=== PATIENT | female | born 1985 | race Caucasian/White ===

== ENCOUNTER 2017-08-07 10:52 | Emergency (ER) | payer SELFPAY ==
[2017-08-07 11:01] VITALS: O2SAT 98
[2017-08-07 11:02] VITALS: BMI 36.2
--- NOTE | 2017-08-07 12:14 | ED PDOC ---
HPI: Eye Injury/Pain Time Seen by Provider: 08/07/17 11:05 Chief Complaint (Nursing): ENT Problem Chief Complaint (Provider): Eye Pain and Swelling History Per: Patient History/Exam Limitations: no limitations Onset/Duration Of Symptoms: Days (x 2) Wears Contact Lens?: No Additional Complaint(s): 31 years old female presents to the ED complaining of left eye pain and left lower lid swelling onset 2 days. Patient reports worsening of pain associated with redness and tearing of the left eye. She states she has taken Ibuprofen with no improvement of symptoms. Patient denies experiencing any vision changes , fever, or upper respiratory infection symptoms. PMD: non provided Past Medical History Reviewed: Historical Data, Nursing Documentation, Vital Signs Vital Signs: Last Vital Signs Temp 97.9 F 08/07/17 11:01 Pulse 85 08/07/17 11:01 Resp 16 08/07/17 11:01 BP 114/74 08/07/17 11:01 Pulse Ox 98 08/07/17 11:01 - Medical History PMH: No Chronic Diseases - Surgical History Surgical History: No Surg Hx - Family History Family History: States: Unknown Family Hx - Social History Current smoker - smoking cessation education provided: No Alcohol: None Drugs: Denies - Home Medications Home Medications: Ambulatory Orders Medication Instructions Recorded Clindamycin [Cleocin] 300 mg PO TID #21 cap 08/07/17 Ofloxacin Ophth 0.3% [Ocuflox 1 drop OS Q4 #1 bottle 08/07/17 Ophth 0.3%] - Allergies Allergies/Adverse Reactions: Allergies Allergy/AdvReac Type Severity Reaction Status Date / Time No Known Allergies Allergy Verified 08/07/17 11:56 Review of Systems ROS Statement: Except As Marked, All Systems Reviewed And Found Negative Constitutional: Negative for: Fever Eyes: Positive for: Pain, Eyelid Inflammation (left lower swelling), Redness. Negative for: Vision Change Physical Exam - Reviewed Nursing Documentation Reviewed: Yes Vital Signs Reviewed: Yes - Physical Exam Appears: Positive for: Non-toxic, No Acute Distress Head Exam: Positive for: ATRAUMATIC, NORMOCEPHALIC Eye Exam: Positive for: EOMI, PERRL, Conjunctival injection (mild redness of left eye. no uptake of fluorscein dye), Other (Small amount of purulent discharge. Redness and swelling of left lower lid. Negative for proptosis) Extremity: Positive for: Normal ROM Neurologic/Psych: Positive for: Alert, Oriented - ECG O2 Sat by Pulse Oximetry: 98 (RA) Pulse Ox Interpretation: Normal Medical Decision Making Medical Decision Making: Time: 1200 Initial impression: eye infection. Differential includes but not limited to conjunctivitis of left eye, Blepharitis, less likely periorbital cellulitis. Based on the history of exam, there is no evidence at this time of periorbital cellulitis or orbital cellulitis. Patient is given prescription of antibiotics and eye drop, and instructed to follow up in 2 days. Patient is restricted to return in 24 hours if case worsens. Scribe Attestation: Documented by Catherine Waldrop, acting as a scribe for Evan Bauer MD. Provider Scribe Attestation: All medical record entries made by the Scribe were at my direction and personally dictated by me. I have reviewed the chart and agree that the record accurately reflects my personal performance of the history, physical exam, medical decision making, and the department course for this patient. I have also personally directed, reviewed, and agree with the discharge instructions and disposition. Disposition - Clinical Impression Clinical Impression: Blepharitis of left eye, Conjunctivitis - Patient ED Disposition Is Patient to be Admitted: No Doctor Will See Patient In The: Office Counseled Patient/Family Regarding: Studies Performed, Diagnosis, Need For Followup - Disposition Referrals: Tu Duran MD [Staff Provider] - Disposition: Routine/Home Disposition Time: 12:05 Condition: GOOD Additional Instructions: Take your medications as instructed. Follow up with your PCP in 2 days. Return for worsening within 24 hours to ER. Prescriptions: Clindamycin [Cleocin] 300 mg PO TID #21 cap Ofloxacin Ophth 0.3% [Ocuflox Ophth 0.3%] 1 drop OS Q4 #1 bottle Instructions: Conjunctivitis (Pinkeye), Blepharitis Forms: [facility] (Tajik), [facility] (Luxembourger) Print Language: LAO
[2017-08-07 12:30] VITALS: BP 126/76; PULSE 80; RESP 20; TEMP 97.6
== END 2017-08-07 12:30 | disposition home or self-care (01) ==
LOC: H.ER 10:52
DX: H01.006 Unspecified blepharitis left eye, unspecified eyelid (principal); H10.9 Unspecified conjunctivitis

== ENCOUNTER 2018-01-31 09:13 | Emergency (ER) | payer SELFPAY ==
[2018-01-31 09:13] VITALS: BMI 36.2
[2018-01-31 09:19] VITALS: O2SAT 100
--- NOTE | 2018-01-31 10:04 | ED PDOC ---
HPI: Abdomen Time Seen by Provider: 01/31/18 09:25 Chief Complaint (Nursing): Abdominal Pain Chief Complaint (Provider): abdominal pain History Per: Patient History/Exam Limitations: no limitations Onset/Duration Of Symptoms: Hrs (last night) Current Symptoms Are (Timing): Still Present Location Of Pain/Discomfort: Epigastric Quality Of Discomfort: Sharp Associated Symptoms: Nausea, Vomiting, Diarrhea. denies: Fever, Chills Additional Complaint(s): Mildred Pagan is a 32 year old female, with no significant past medical history, who presents to the emergency department complaining of a sharp epigastric pain onset since last night. Patient states pain is associated with n ausea, vomit and diarrhea. She denies any fever, chills or bleeding. No further medical complaints. PMD: None provided. Past Medical History Reviewed: Historical Data, Nursing Documentation, Vital Signs Vital Signs: Last Vital Signs Temp 98.0 F 01/31/18 09:18 Pulse 80 01/31/18 09:18 Resp 18 01/31/18 09:18 BP 135/82 01/31/18 09:18 Pulse Ox 100 01/31/18 09:18 - Medical History PMH: No Chronic Diseases - Surgical History Surgical History: No Surg Hx - Family History Family History: States: Unknown Family Hx - Social History Current smoker - smoking cessation education provided: No Alcohol: None Drugs: Denies - Home Medications Home Medications: Ambulatory Orders Medication Instructions Recorded Clindamycin [Cleocin] 300 mg PO TID #21 cap 08/07/17 Ofloxacin Ophth 0.3% [Ocuflox 1 drop OS Q4 #1 bottle 08/07/17 Ophth 0.3%] Famotidine [Pepcid] 20 mg PO Q12 #20 tab 01/31/18 - Allergies Allergies/Adverse Reactions: Allergies Allergy/AdvReac Type Severity Reaction Status Date / Time No Known Allergies Allergy Verified 08/07/17 11:56 Review of Systems ROS Statement: Except As Marked, All Systems Reviewed And Found Negative Constitutional: Negative for: Fever, Chills Gastrointestinal: Positive for: Nausea, Vomiting, Abdominal Pain, Diarrhea. Negative for: Hematochezia Physical Exam - Reviewed Nursing Documentation Reviewed: Yes Vital Signs Reviewed: Yes - Physical Exam Appears: Positive for: No Acute Distress Head Exam: Positive for: ATRAUMATIC, NORMAL INSPECTION, NORMOCEPHALIC Skin: Positive for: Normal Color, Warm, Dry Eye Exam: Positive for: Normal appearance, EOMI, PERRL Neck: Positive for: Painless ROM Cardiovascular/Chest: Positive for: Regular Rate, Rhythm. Negative for: Murmur Respiratory: Positive for: Normal Breath Sounds. Negative for: Respiratory Distress Gastrointestinal/Abdominal: Positive for: Soft, Tenderness (epigastric ) Back: Positive for: Normal Inspection. Negative for: L CVA Tenderness, R CVA T enderness, Vertebral Tenderness Extremity: Positive for: Normal ROM (upper and lower extremities). Negative for: Deformity, Swelling Neurologic/Psych: Positive for: Alert, Oriented - Laboratory Results Result Diagrams: 01/31/18 10:20 01/31/18 10:20 - ECG O2 Sat by Pulse Oximetry: 100 (RA) Pulse Ox Interpretation: Normal - Progress Re-evaluation Time: 11:39 Condition: Improved Medical Decision Making Medical Decision Making: Time: 09:25 Initial Plan: --CMP --Lipase --Urine --Urine dipstick --CBC w/ differential --Sodium Chloride 1,000 ml IV 100 mls/hr --Pepcid 20 mg IVP --Zofran Inj 4 mg IVP --Reevaluation --- -- Scribe Attestation: Documented by Nirmal Zaman, acting as a scribe for Sylvester Monterroso MD. Provider Scribe Attestation: All medical record entries made by the Scribe were at my direction and personally dictated by me. I have reviewed the chart and agree that the record accurately reflects my personal performance of the history, physical exam, medical decision making, and the department course for this patient. I have also personally directed, reviewed, and agree with the discharge instructions and disposition. Disposition - Clinical Impression Clinical Impression: Gastritis - Patient ED Disposition Is Patient to be Admitted: No - Disposition Referrals: [facility] [Outside] Disposition: Routine/Home Disposition Time: 11:39 Condition: FAIR Prescriptions: Famotidine [Pepcid] 20 mg PO Q12 #20 tab Instructions: Gastritis Forms: [facility] (Portuguese)
[2018-01-31] MEDS: Sodium Chloride 0.9% 1,000 ML IV STA (10:08)
[2018-01-31 10:39] LABS: BASO % 0.3 % (0.0-2.0); EOS # 0.1 K/uL (0.0-0.7); EOS % 1.4 % (0.0-4.0); HEMOGLOBIN 13.1 g/dL (12.0-16.0); LYMPH # 2.1 K/uL (1.0-4.3); LYMPH % 21.9 % (20.0-40.0); MEAN CELL VOLUME 83.3 fl (81.0-99.0); MEAN CORPUSCULAR HEMOGLOBIN 27.4 pg (27.0-31.0); MEAN CORPUSCULAR HGB CONC 32.9 g/dL (33.0-37.0); MEAN PLATELET VOLUME 7.8 fl (7.2-11.7); MONO # 0.6 K/uL (0.0-0.8); MONO % 5.9 % (0.0-10.0); NEUT # 6.8 K/uL (1.8-7.0); NEUT % 70.5 % (50.0-75.0); RBC 4.79 Mil/uL (3.80-5.20); RED CELL DISTRIBUTION WIDTH 14.5 % (11.5-14.5); WHITE BLOOD COUNT 9.7 K/uL (4.8-10.8)
[2018-01-31 10:49] LABS: ALB/GLOB RATIO 1.1 (1.0-2.1); ALBUMIN 4.2 g/dL (3.5-5.0); ALT/SGPT 40 U/L (9-52); AST/SGOT 28 U/L (14-36); BLOOD UREA NITROGEN 15 mg/dl (7-17); CALCIUM 9.4 mg/dL (8.4-10.2); GFR NON-AFRICAN AMERICAN > 60; LIPASE 73 U/L (23-300)
[2018-01-31 13:16] VITALS: BP 121/67; PULSE 77; RESP 17; TEMP 98
== END 2018-01-31 13:15 | disposition home or self-care (01) ==
LOC: H.ER 09:13
DX: K29.70 Gastritis, unspecified, without bleeding (principal)
CPT/HCPCS: 80053; 81025; 83690; 85025; 96374; 96375; 99283; J2405; J7030